=== PATIENT | female | born 1955 | race Caucasian/White ===

== ENCOUNTER 2019-01-19 20:04 | Inpatient (IN) | payer BC, OTHER ==
[~2019-01-19] VITALS: Ht 172.7 cm; Wt 74.8 kg
[~2019-01-19 20:04] MED LIST: APAP500 PO; ASPIRIN325; CELEXA 10 MG TA10 M1 PO; CEPHALEXIN 500500 M1; DOXYCYCLINE 10100 M1; ESTRACE2 MG; FLAGYL500 MG PO; HYDROCODON-ACE1 EAC2 PO; POTASSIUM20 PO; PRILOSEC40 MG PO; PROBIOTIC1 EAC1 PO; RESTORIL7.5 MG
[2019-01-19 20:06] VITALS: BP 119/83
[2019-01-19] MEDS ORDERED: LISINOPRIL PO (20:26)
[2019-01-19 20:38] LABS: HEMATOCRIT 46.3 % (37.0-47.0); HEMOGLOBIN 15.3 gm/dL (12.0-15.0); MCH 29.2 pg (26.0-34.0); MCHC 33.1 g/dL (28.0-37.0); MCV 88.3 fL (80.0-100.0); PLATELET COUNT 321 thou/uL (150-400); RBC 5.25 mil/uL (4.20-5.00); WBC 21.3 thou/uL (4.0-11.0)
[2019-01-19 20:44] LABS: CALCIUM 9.4 mg/dL (8.5-10.1); CREATININE 1.1 mg/dL (0.6-1.0); POTASSIUM 3.8 mmol/L (3.5-5.1)
[2019-01-19 20:50] LABS: ALBUMIN 3.8 g/dL (3.4-5.0); DIRECT BILIRUBIN 0.2 mg/dL (<0.1-0.3); TOTAL BILIRUBIN 0.7 mg/dL (<0.1-1.0); TOTAL PROTEIN 7.2 g/dL (6.4-8.2)
[2019-01-19 21:04] LABS: ABSOLUTE NEUTROPHILS 15.8 thou/uL (1.4-8.2); ATYPICAL LYMPHS 2 %
[2019-01-20] VITALS (7 sets, daily range): BP systolic 100–147; BP diastolic 57–90
--- NOTE | 2019-01-20 02:06 | NUR ---
ASSESSMENT: PT ARRIVED TO THE UNIT AT 0130. PT IS ALERT AND ORIENT TIMES FOUR. KIMBLE. UP TO BR WITH SBA CURRENTLY. PT DENIES HAVING A BLOODY STOOL SINCE ADMISSION AND STATED THAT THE NAUSEA HAS SUBSIDED. VSS, AFEBRILE. AMISSION DONE. NO FURTHER QUESTIONS FROM PT, DID STATE THAT SHE WASN'T NAUSEA POST GETTING ZOFRAN IN ED. PT IS SLEEPY AND STATE THAT SHE WAS GOING TO GET SOME SLEEP TONIGHT AND HOPEFULLY SHE IS DISCHARGED IN THE MORINGING. WILL CONTINUE TO MONITOR.
--- NOTE | 2019-01-20 13:59 | NUR ---
ASSESSMENT-PT LIVES AT HOME WITH HER SIGNIFICANT OTHER. SHE IS INDEPENDET OF ADLS AND AMBULATION. PT VOICES NO CONCERNS RELATED TO DC. S.O. IN [facility] AND ABLE TO ASSIST IF NEEDED. PT USES NO DME AND HAS NOT HAD HH SERVICES.
--- NOTE | 2019-01-20 14:02 | NUR ---
ASSUMED CARE OF THE PT AT 0700. PT HAD CLEAR DIARRHEA AND BLOOD IN IT, SENT TO LAB FOR ORDERED TESTING. PT IS ON A LIQUID DIET UNTIL MIDNIGHT THEN WILL BE NPO. EGD/ COLONOSCOPY ORDERED, CONSENTS ARE SIGNED. PT IS ON ISOLATION FOR C DIFF PRECAUTIONS, CART IN PLACE. NO COMPLAINTS OF PAIN OR N/V. PT IS NOT A FALL RISK. CALL LIGHT IS WITHIN REACH. L AC IV IS CLEAN, DRY AND INTACT. BED IN LOWEST POSITION. LUNGS ARE CLEAR. PEDAL/ RADIAL PULSES ARE NORMAL. WILL CONTINUE TO MONITOR THE PT.
[2019-01-21 04:32] VITALS: BP 135/78
[2019-01-21 08:01] VITALS: BP 146/84
--- NOTE | 2019-01-21 08:12 | NUR ---
PT AO X4. PT AMBULATES INDEPENDENTLY. PT HAS NO REPORTS OF PAIN. PT DOES REPORT ABDOMINAL DISCOMFORT CRAMPING. PT NPO AT 0000. PT TOOK 3/4 OF BOWEL PREP. LAST BOWEL MOVEMENT CLEAR YELLOW WITHOUT SEDIMENT. PT ABDOMEN SOFT, NONDISTENDED, AND NONTENDER. ENCOURAGED TO CONTACT STAFF FOR ALL NEEDS. CALL LIGHT WITHIN REACH, BED IN LOWEST POSITION, BED ALARMS ON. WILL CONTINUE TO MONITOR.
[2019-01-21 14:07] VITALS: BP 154/96
--- NOTE | 2019-01-21 17:42 | NUR ---
Assumed care of pt at 0700. Pt alert and oriented x4. EGD and colonoscopy today. Stool sample is positive for C-diff. Provider aware. Scheduled for CTA mesenteric angiogram. NPO for 4 hours prior to test. Blood sugar 68. [place] juice given. Will recheck blood sugar again. Pt requests for nurse to contact physician for change to regular diet. Will notify doctor. Denies pain. Will continue to monitor.
[2019-01-21 22:03] VITALS: BP 134/76
--- NOTE | 2019-01-22 01:23 | NUR ---
ASSUMED CARE OF PATIENT AT SHIFT CHANGE. ASSESSMENT CHARTED. MEDICATIONS ADMINISTERED PER EMAR. PATIENT IS A&OX4 AND GETS UP INDEPENDENTLY W NO ISSUES. VSS, O2 SATS WNL ON RA. PATIENT IS NO LONGER HAVING FREQUENT STOOLS THIS SHIFT. PATIENT DENIES PAIN BUT STATES SHE IS TIRED FROM THE BOWEL PREP AND PROCEDURE SHE HAD. PATIENT IS NOW ON A REGULAR DIET AND ATE 1/2 A SANDWHICH. PATIENT SAID SHE HAD "A BIT OF NAUSEA" WHICH WAS RELIEVED UNMEDICATED AFTER A FEW MINUTES. THIS NURSE WILL BE ALERT FOR ORDERS IN CASE PATIENT NEEDS ANTIBIOTIC TX. PATIENT VOICES NO OTHER NEEDS AT THIS TIME. WILL CONTINUE TO MONITOR AND FOLLOW POC
[2019-01-22 05:00] VITALS: BP 150/90
[2019-01-22 09:00] VITALS: BP 120/74
--- NOTE | 2019-01-22 13:35 | NUR ---
ASSUMED CARE OF THE PT AT 0700. PT IS AMBULATORY AND IS NOT A FALL RISK. PT HAS NOT HAD DIARRHEA TODAY. PT HAS BEEN TOLERATING FOOD AND FLUIDS. PT HAD A HEADACHE AND PAINW CONTROLLED BY MEDICATION, SEE EMAR. LUNG SOUNDS ARE CLEAR AND ABDOMINAL SOUNDS ARE ACTIVE. PT IS ON ISOLATION FOR POSITIVE C DIFF, PT EDUCATED ON C DIFF PRECAUTIONS. R FOREARM IV DRY AND INTACT. PER DOCTOR IF PT TOLERATES MEDICATION, CAN BE DISCHARGED. CALL LIGHT IS WITHIN REACH AND BED IS IN THE LOWEST POSITION. WILL CONTINUE TO MONITOR THE PT.
[2019-01-22] MEDS ORDERED: MAXALT10 MG PO (16:04)
[2019-01-22] MEDS ORDERED: METRONIDAZOLE500 M4 PO (16:04)
[2019-01-22 16:58] VITALS: BP 120/74
[2019-01-22 17:03] VITALS: BP 120/74
[2019-01-22 17:05] VITALS: BP 120/74
[2019-01-22 17:07] VITALS: BP 120/74
--- NOTE | 2019-01-22 18:06 | PATH ---
[facility] [place] [address] PATHOLOGY RPT PROCEDURE Name: GUILHERME MAGALLANES Room #: 448-P DIS IN M.R.#: [id number] Admission: 01/19/19 Date of : 59 Discharge: 01/22/19 Report #: [id number] Path Case #: [id number] [facility] Accession Number: [id number] . 01 Material submitted: . PART A: duodenum - BIOPSY OF DUODENUM R/O CELIAC PART B: stomach - BIOPSY OF ANTRUM R/O H. PYLORI PART C: esophagus - BIOPSY OF DISTAL ESOPHAGUS R/O BARRETTS. Modifiers: distal PART D: colon - BIOPSY OF COLON INFLAMMATION FROM DISTAL TRANSVERSE TO SIGMOID. Modifiers: distal, transverse, sigmoid . 01 Clinical history: . Pre-OP DX: Heartburn Post-OP DX: Esophagitis, hiatal hernia, gastritis . 02 Diagnosis: A. Small bowel mucosa, duodenum, endoscopic biopsy: - Superficial fragments showing nonspecific mild chronic inflammation. - Negative for villous blunting or increase in intraepithelial lymphocytes. . B. Gastric mucosa, antrum R/O H. pylori, endoscopic biopsy: - Mild reactive gastropathy. - Negative for intestinal metaplasia or atrophy. - Negative for Helicobacter pylori (properly controlled immunohistochemical stain performed). . C. Gastroesophageal mucosa, distal esophagus R/O Bridges's, endoscopic biopsy: - Gastric fundic-type mucosa showing moderate chronic inflammation. - No definite intestinal metaplasia or dysplasia present. - Squamous mucosa with mild esophagitis. . D. Large intestine mucosa, colon inflammation distal transverse to sigmoid, endoscopic biopsy: - Mild to moderate active colitis associated with fibrotic lamina propria and surface regenerative atypia (please see comment). - Negative for dysplasia or malignancy. (IUV:singh; 01/22/2019) S 01/22/2019 1343 Local . 02 Comment: D. Examination shows lamina propria hemorrhage, cryptitis, focal crypt abscess formation, surface epithelial regenerative atypia as well as lamina propria fibrosis in scattered foci. There are no viral inclusions, granulomata, or crypt architectural abnormalities identified. The [address] [place] [address] PATHOLOGY RPT PROCEDURE Name: GUILHERME MAGALLANES Room #: 448-P DIS IN M.R.#: [id number] Admission: 01/19/19 Date of : 59 Discharge: 01/22/19 Report #: [id number] Path Case #: [id number] differential diagnosis includes diverticulitis, infectious-type of colitis, ischemic colitis in addition to medication/drug induced colitis. Please correlate clinically and follow-up as indicated. (IUV:singh; 01/22/2019) . 02 Electronically signed: . Payal Mcdonald MD, Pathologist NPI- [id number] . 01 Gross description: . A. Received in formalin labeled "Guilherme Magallanes, BX of duodenum for celiac," are 2 segments of lopez soft tissue measuring 0.8 x 0.2 x 0.2 cm in aggregate dimensions and ranging from 0.3 to 0.5 cm in maximum dimension. The specimen is submitted entirely in cassette A1. . B. Received in formalin labeled "Guilherme Magallanes, BX antrum for H. pylori," are 2 segments of lopez soft tissue measuring 1.0 x 0.2 x 0.2 cm in aggregate dimensions and ranging from 0.4 to 0.6 cm in maximum dimension. The specimen is submitted entirely in cassette B1. . C. Received in formalin labeled "Guilherme Magallanes BX of distal esophagus, rule out Bridges's," is a single segment of lopez soft tissue measuring 0.4 cm in maximum dimension. The specimen is entirely submitted in cassette C1. . D. Received in formalin labeled "Guilherme Magallanes BX of colon inflammation from distal transverse to sigmoid," are 3 segments of lopez soft tissue measuring 0.9 x 0.9 x 0.2 cm in aggregate dimensions and ranging from 0.3 to 0.8 cm in maximum dimension. The specimen is submitted entirely in cassette D1. (TSD; 01/21/2019) TOB/TOB 01/21/[address] [place] [address] . 02 Pathologist provided ICD-10: K29.80, K31.9, K20.9, K52.9 . 02 CPT . 491595, [id number], [id number], [id number], [id number] Specimen Comment: A courtesy copy of this report has been sent to [phone] Specimen Comment: [id number] Specimen Comment: Report sent to / DR WOOD Performed at: [address], [place], [place] [id number] MD Sushant Pugh MD Phone: [phone] Performed at: 02 [facility] [address] [place] [address] PATHOLOGY RPT PROCEDURE Name: GUILHERME MAGALLANES Room #: 448-P [facility] IN M.R.#: [id number] Admission: 01/19/19 Date of : 59 Discharge: 01/22/19 Report #: [id number] Path Case #: [id number] [address] [place] [id number] MD Payal Mcdonald MD Phone: [phone]
== END 2019-01-22 17:22 | disposition home or self-care (01) | DRG 372 ==
LOC: ER 20:04 → EROBS 23:58 → 4S 23:58
PROVIDERS: Emergency Medicine; ADMIT Internal Medicine
PROC: 0DBE8ZX Excision of Large Intestine, Via Natural or Artificial Opening Endoscopic, Diagnostic (ICD-10-PCS; principal; 2019-01-21)
PROC: 0DB38ZX Excision of Lower Esophagus, Via Natural or Artificial Opening Endoscopic, Diagnostic (ICD-10-PCS; principal; 2019-01-21)
PROC: 0DB68ZX Excision of Stomach, Via Natural or Artificial Opening Endoscopic, Diagnostic (ICD-10-PCS; principal; 2019-01-21)
PROC: 0DB98ZX Excision of Duodenum, Via Natural or Artificial Opening Endoscopic, Diagnostic (ICD-10-PCS; principal; 2019-01-21)
DX: A04.72 Enterocolitis due to Clostridium difficile, not specified as recurrent (principal); K55.9 Vascular disorder of intestine, unspecified; D72.829 Elevated white blood cell count, unspecified; K20.9 Esophagitis, unspecified; K44.9 Diaphragmatic hernia without obstruction or gangrene; K29.70 Gastritis, unspecified, without bleeding; K57.30 Diverticulosis of large intestine without perforation or abscess without bleeding; K64.8 Other hemorrhoids; R51 Headache; Z80.0 Family history of malignant neoplasm of digestive organs; Z88.2 Allergy status to sulfonamides; Z88.8 Allergy status to other drugs, medicaments and biological substances; Z88.1 Allergy status to other antibiotic agents; Z91.040 Latex allergy status; Z91.018 Allergy to other foods; Z91.013 Allergy to seafood; Z87.891 Personal history of nicotine dependence
CPT/HCPCS: 10195; 62110; 62900; 70005